=== PATIENT | female | born 1995 | race Hispanic/Latino ===

== ENCOUNTER 2017-06-26 20:56 | Emergency (ER) | payer OTHER ==
[2017-06-26 21:10] VITALS: BP 137/79; PULSE 94; RESP 16; TEMP 98.7; O2SAT 100
[2017-06-26] MEDS ORDERED: Sodium Chloride 0.9% 1,000 ML IV STA (21:59)
--- NOTE | 2017-06-26 22:06 | ED PDOC ---
HPI: Chest Pain Time Seen by Provider: 06/26/17 21:14 Chief Complaint (Nursing): Chest Pain Chief Complaint (Provider): chest pain, abdominal pain History Per: Patient History/Exam Limitations: no limitations Onset/Duration Of Symptoms: Days (1) Current Symptoms Are (Timing): Still Present Exacerbating Factors: Turning, Movement, Deep Breathing Additional History Per: Patient Additional Complaint(s): 21 y/o female presents with intermittent chest and abdominal pain x 1 day. Patient notes pain to center of chest, worse to touch and with deep breaths. Patient also notes intermittent pain to left upper abdomen, describes as "cramping". Patient recently diagnosed with mono, last took ibuprofen as 11:00 this am. Denies headache, neck pain, cough, congestion, shortness of breath, palpitations, changes in bowel movements, leg pain/swelling, abdominal trauma. Past Medical History Reviewed: Historical Data, Nursing Documentation, Vital Signs Vital Signs: Last Vital Signs Temp 98.7 F 06/26/17 21:05 Pulse 94 H 06/26/17 21:05 Resp 16 06/26/17 21:05 BP 137/79 06/26/17 21:05 Pulse Ox 100 06/27/17 01:20 - Medical History PMH: No Chronic Diseases - Surgical History Surgical History: No Surg Hx - Family History Family History: States: No Known Family Hx - Living Arrangements Living Arrangements: Alone - Social History Current smoker - smoking cessation education provided: No - Allergies Allergies/Adverse Reactions: Allergies Allergy/AdvReac Type Severity Reaction Status Date / Time azithromycin Allergy SHORTNESS Verified 06/26/17 21:04 [From Zithromax Z-Clark] OF BREATH Review of Systems ROS Statement: Except As Marked, All Systems Reviewed And Found Negative Cardiovascular: Positive for: Chest Pain Gastrointestinal: Positive for: Abdominal Pain Physical Exam - Reviewed Nursing Documentation Reviewed: Yes Vital Signs Reviewed: Yes - Physical Exam Appears: Positive for: Well, Non-toxic, No Acute Distress Head Exam: Positive for: ATRAUMATIC, NORMAL INSPECTION, NORMOCEPHALIC Skin: Positive for: Normal Color Eye Exam: Positive for: Normal appearance ENT: Positive for: Normal ENT Inspection Cardiovascular/Chest: Positive for: Regular Rate, Rhythm. Negative for: Chest Non Tender (tender to palpate superior sternum; no ecchymosis, swelling noted) Respiratory: Positive for: Normal Breath Sounds Gastrointestinal/Abdominal: Positive for: Bowel Sounds, Soft, Tenderness (LUQ) Back: Positive for: Normal Inspection Extremity: Positive for: Normal ROM Neurologic/Psych: Positive for: Alert, Oriented - Laboratory Results Result Diagrams: 06/26/17 23:48 06/26/17 23:48 - ECG O2 Sat by Pulse Oximetry: 100 - Progress ED Course And Treament: labs, chest xray, ekg, u/s, IV fluids EXAM: US Abdomen Limited CLINICAL HISTORY: 21 years old, female; Signs and symptoms; Other: [place]; Additional info: Dx: [place] , luq pain TECHNIQUE: Real-time ultrasound of the LEFT upper quadrant (limited) with image documentation. COMPARISON: No relevant prior studies available. FINDINGS: The spleen is enlarged measuring 17.7 cm. The aorta is normal. The IVC is normal. The LEFT kidney is unremarkable measuring 11.5 cm. IMPRESSION: Splenomegaly. On re-eval, patient states she is feeling better. Patient educated on findings, chest pain consistent with msk pain. Patient discharged with instructions to follow up PMD 2-3 days. Advised Ibuprofen PRN pain. rest. fluids. Return to ED for worsening/concerning symptoms. Disposition - Clinical Impression Clinical Impression: Atypical chest pain, Splenomegaly, Mononucleosis - Patient ED Disposition Is Patient to be Admitted: No Counseled Patient/Family Regarding: Studies Performed, Diagnosis, Need For Followup - Disposition Referrals: [facility] [Outside] Disposition: Routine/Home Disposition Time: 01:59 Condition: STABLE Additional Instructions: Follow up with primary doctor in 2-3 days. Take Ibuprofen as directed, as needed for pain. refrain from physical activity/sports until cleared by physician. Return to Ed for worsening/concerning symptoms. Instructions: Mononucleosis (ED), Noncardiac Chest Pain (ED) Forms: [facility] (Maltese)
--- NOTE | 2017-06-26 23:36 | US ---
EXAM: US Abdomen Limited CLINICAL HISTORY: 21 years old, female; Signs and symptoms; Other: [place]; Additional info: Dx: [place], luq pain TECHNIQUE: Real-time ultrasound of the LEFT upper quadrant (limited) with image documentation. COMPARISON: No relevant prior studies available. FINDINGS: The spleen is enlarged measuring 17.7 cm. The aorta is normal. The IVC is normal. The LEFT kidney is unremarkable measuring 11.5 cm. IMPRESSION: Splenomegaly.
[2017-06-26 23:51] LABS: BASO % 0.5 % (0.0-2.0); EOS % 0.2 % (0.0-4.0); HEMATOCRIT 36.9 % (34.0-47.0); LYMPH # 4.4 K/uL (1.0-4.3); LYMPH % 71.4 % (20.0-40.0); MEAN CELL VOLUME 79.2 fl (81.0-99.0); MEAN CORPUSCULAR HEMOGLOBIN 25.4 pg (27.0-31.0); MEAN CORPUSCULAR HGB CONC 32.1 g/dL (33.0-37.0); MEAN PLATELET VOLUME 9.8 fl (7.2-11.7); MONO # 0.7 K/uL (0.0-0.8); MONO % 11.7 % (0.0-10.0); NEUT % 16.2 % (50.0-75.0); NRBC % 0.6 % (0.0-0.0); PLATELET COUNT 96 K/uL (130-400); RED CELL DISTRIBUTION WIDTH 13.8 % (11.5-14.5); WHITE BLOOD COUNT 6.1 K/uL (4.8-10.8)
[2017-06-27 00:06] LABS: ALB/GLOB RATIO 1.4 (1.0-2.1); ALKALINE PHOSPHATASE 123 U/L (38-126); ALT/SGPT 151 U/L (9-52); AST/SGOT 157 U/L (14-36); BILIRUBIN,TOTAL 0.6 mg/dl (0.2-1.3); BLOOD UREA NITROGEN 12 mg/dl (7-17); CALCIUM 9.3 mg/dL (8.4-10.2); CARBON DIOXIDE 28 mmol/L (22-30); CHLORIDE 100 mmol/L (98-107); GFR AFRICAN-AMERICAN > 60; GLUCOSE,RANDOM 85 mg/dL (65-105); SODIUM 141 mmol/l (132-148); TOTAL PROTEIN 7.1 G/DL (6.3-8.2)
[2017-06-27 01:25] LABS: LARGE PLATELETS PRESENT; NEUTROPHIL 18 % (42-75); REACTIVE LYMPHOCYTES 5 % (0-0); TOTAL CELLS COUNTED 100
--- NOTE | 2017-06-27 10:33 | CARD ---
APPROVED REPORT EKG Measurement Heart [id number] <Conclusion> Normal sinus rhythm Possible Left atrial enlargement Abnormal QRS-T angle, consider primary T wave abnormality Abnormal ECG
--- NOTE | 2017-06-27 12:03 | RAD ---
HISTORY: chest pain COMPARISON: No prior. TECHNIQUE: Chest PA and lateral FINDINGS: LUNGS: No active pulmonary disease. PLEURA: No significant pleural effusion identified. No pneumothorax apparent. CARDIOVASCULAR: Normal. OSSEOUS STRUCTURES: No significant abnormalities. VISUALIZED UPPER ABDOMEN: Normal. OTHER FINDINGS: None. IMPRESSION: No active disease. Please note: There is No preliminary report provided by emergency department personnel.
== END 2017-06-27 01:57 | disposition home or self-care (01) ==
LOC: H.ER 20:56
DX: R07.89 Other chest pain (principal); B27.90 Infectious mononucleosis, unspecified without complication
CPT/HCPCS: 71020; 76705; 80053; 81025; 83690; 84484; 85025; 87040; 93005; 99282; J7040

== ENCOUNTER 2017-07-28 00:48 | Emergency (ER) | payer OTHER ==
[2017-07-28 01:16] VITALS: BP 132/89; PULSE 112; RESP 16; TEMP 98.6; O2SAT 98
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
[2017-07-28 01:56] LABS: BASO % 0.5 % (0.0-2.0); EOS # 0.1 K/uL (0.0-0.7); HEMATOCRIT 34.4 % (34.0-47.0); LYMPH # 2.1 K/uL (1.0-4.3); LYMPH % 27.2 % (20.0-40.0); MEAN CELL VOLUME 77.3 fl (81.0-99.0); MEAN CORPUSCULAR HEMOGLOBIN 24.9 pg (27.0-31.0); MEAN CORPUSCULAR HGB CONC 32.2 g/dL (33.0-37.0); MEAN PLATELET VOLUME 9.5 fl (7.2-11.7); MONO # 0.8 K/uL (0.0-0.8); MONO % 9.9 % (0.0-10.0); NEUT # 4.7 K/uL (1.8-7.0); NEUT % 61.4 % (50.0-75.0); NRBC % 0.1 % (0.0-0.0); WHITE BLOOD COUNT 7.7 K/uL (4.8-10.8)
[2017-07-28 02:06] LABS: ALB/GLOB RATIO 1.5 (1.0-2.1); ALKALINE PHOSPHATASE 63 U/L (38-126); ALT/SGPT 29 U/L (9-52); AST/SGOT 25 U/L (14-36); BILIRUBIN,TOTAL 0.3 mg/dl (0.2-1.3); BLOOD UREA NITROGEN 18 mg/dl (7-17); CALCIUM 9.1 mg/dL (8.4-10.2); CARBON DIOXIDE 25 mmol/L (22-30); CHLORIDE 104 mmol/L (98-107); GFR AFRICAN-AMERICAN > 60; GLUCOSE,RANDOM 103 mg/dL (65-105); SODIUM 141 mmol/l (132-148); TOTAL PROTEIN 7.2 G/DL (6.3-8.2)
[2017-07-28 02:27] LABS: PARTIAL THROMBOPLASTIN TIME 28.9 Seconds (25.6-37.1)
[2017-07-28] MEDS ORDERED: Iohexol 300 100 ML IJ ONE (02:39)
[2017-07-28] MEDS ORDERED: Sodium Chloride 0.9% 50 ML IV ONE (02:39)
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
== END 2017-07-28 04:05 | disposition home or self-care (01) ==
LOC: H.ER 00:48
DX: R10.9 Unspecified abdominal pain (principal)
CPT/HCPCS: 71101; 74177; 80053; 85025; 85610; 85730; 86850; 86900; 99282; Q9967